=== PATIENT | female | born 1995 | race Caucasian/White ===

== ENCOUNTER 2024-12-31 10:30 | Outpatient (AMB) | payer MEDICAID, SELFPAY ==
--- NOTE | 2024-12-31 10:31 | OBCLNT_ITS ---
Vital Signs 12/31/24 10:46 Height 1.65 m Height Method Stated Weight 46.04 kg Weight Measurement Method Standing Scale BMI 16.9 BP 111/69 Blood Pressure Source Automatic Cuff Blood Pressure Location Left Upper Arm Position Sitting Respiration 16 Pulse 74 Pulse Source Monitor Temp 97.8 F Temp Source Oral Pulse Oximetry (%) 99 Oxygen Delivery Method Room Air Allergies/Home Meds Allergies & Medications Allergies NKA* Allergy (Uncoded 12/31/24 10:47) Intake Visit Data Collection New Patient or Established: New Patient (never been to [facility]) Reason for Visit:: NEW OB , INITIAL APPT Seen by Clinical Staff ONLY (RN/MA): No Retail And Restaurant Required: No Do You Feel Safe at Home: Yes Authorities Contacted: N/A PCP or OBGYN visit in last 3 months: No Hx Now: Yes Are you currently on any form of Control: No Last menstrual period: 10/21/24 Pain Present Currently: No Pain Scale Used: Choudhury-Villalpando/Numerical Pain scale:: 0 Smoking Status Smoking Status: Never smoker Questionnaires Covid-19 Vaccine Questionnaire Has patient been vacinated for Covid-19 Have you been vacinated for Covid-19: Yes PHQ-9 PHQ-2 Over the last 2 weeks, how often have you been bothered by any of the following problems? 1. Little interest or pleasure in doing things: not at all 2. Feeling down, depressed, or hopeless: not at all Total score: 0 Depression screen completed yes Social History Living Situation History Marital Status: Lives With: Family Housing: House 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 Feel Safe at Home: Yes Past Medical History Past Medical History Have you ever been diagnosed with any of the following: Neurological Problems Cerebrovascular Accident (CVA): No Transient Ischemic Attacks (TIA): No Dementia: No Alzheimer's Disease: No Parkinson's Disease: No Brain Tumor: No Meningitis: No Seizures: No Epilepsy: No Multiple Sclerosis: No Cerebral Palsy: No Amyotrophic Lateral Sclerosis (ALS/Johanna Gehrig's): No Guillain-Arcol[place] Syndrome: No Spina Bifida: No Paralysis: No Peripheral Neuropathy: No Acosta's Palsy: No Subdural Hematoma: No Migraine: No Head Trauma: No Spinal Cord Injury: No Traumatic Brain Injury: No Respiratory Problems Smoking: No Stomache/Intestinal Problems Gall Bladder Disease: No Gastroesophageal Reflux Disease: No Obesity: No Genital/Urinary Problems Renal Disease: No Reproductive Problems Breast Cancer: No Fibroids: No Genital Herpes: No Pelvic Inflammatory Disease: No Previous Pregnancies: No Endocrine Problems Diabetes Mellitus Type 1: No Diabetes Mellitus Type 2: No Hypothyroidism: No Blood Problems Anemia: No Psychologic Problems Recreational Drug Use: No Depression: No Anxiety: No Attention Deficit Hyperactivity Disorder: No Other Problems Blood Transfusions: No Surgical History Additional Surgical History: [place] teeth removal. History of Present Illness HPI Narrative The patient is a very pleasant 29-year-old G1, P0 who presents with her significant other for her initial OB visit. Patient reports fatigue and mild nausea. No significant vomiting. She has no significant past medical history and her only surgery is wisdom tooth extraction. She denies any bleeding any cramping any abnormal discharge. Patient stays at home and does not work outside the house. OB Initial Visit Menstrual History Menstrual reliability: definite Flow: normal Menstrual regularity: regular Monthly: Yes Age at menarche: 13 On control pills at conception: No Date of positive home test: 11/22/24 Associated symptoms (LMP): Reports fatigue Infection History & Risk Evaluation History of STDs: none HIV risk evaluation: low risk Hepatitis B risk evaluation: low risk Patient or partner has history of Genital Herpes: No Varicella/chicken pox status: immunized Genetic Screening & History Genetic Screening/Teratology Counseling - Includes patient, baby's father, or anyone in either family with: 1. Patient's age 35 years or older as of estimated date of delivery: No 2. Thalassemia (Amharic, Swedish, Mediterranean, or Background); MCV less than 80: No 3. Neural Tube Defect (Meningomyelocele, Spina Bifida, or Anencephaly): No 4. Congenital Heart Defect: No 5. Down Syndrome: No 6. Harrison-Sachs (Ashkenazi Shinto, Cajun, Anguillan Moroccan): No 7. Nehemias Disease (Ashkenazi Shinto): No 8. Familial Dysautonomia (Ashkenazi Shinto): No 9. Sickle Cell Disease or Trait (): No 10. Hemophilia or other blood disorders: No 11. Muscular Dystrophy: No 12. Cystic Fibrosis: No 13. Zavalla's Chorea: No 14. Mental Retardation/Autism: No 15. Other inherited genetic or chromosomal disorder: No 16. Maternal Metabolic Disorder (EG,TYPE 1 Diabetes, PKU): No 17. Patient or baby's father had a child with defects not listed above: No 18. Recurrent loss or a stillbirth: No 19. Medications (including supplements, vitamins, herbs or otc drugs)/ illicit/recreational drugs/alcohol since last menstrual period: No 20. Any other: No Comments/Counseling: Patient desires NIPT testing. Infection History 1. Live with someone with TB or exposed to TB: No 2. Rash or viral illness since last menstrual period: No 3. Hepatitis B,C: No Other (see comments) Source: [employer] OB Flowsheet OB Flowsheet Initial Weight: Not Recorded Date -?-?-?-?-?-?-?-?-?-?-?-?- EGA Weight Edema CTX Effacement BP Fundal ht Pres Dilation Effacement Station Visit Note Alb Glu FHR Mov 12/31/24 -?-?-?-?-?-?-?-?-?-?-?-?- 10w 1d 46.04 kg 111/69 130 Review of Systems Review of Systems Systems Reviewed: All systems reviewed, normal except as documented Constitutional Constitutional: Reports fatigue Endocrine Endocrine: Reports fatigue Exam General Limitations: no limitations General Appearance: alert, in no apparent distress, comfortable, cooperative, healthy appearing, well developed and well groomed Neck Neck exam: Present normal inspection, full ROM and trachea midline Chest Chest inspection: Present normal inspection and symmetric chest wall rise Resp Respiratory exam: Present normal lung sounds bilaterally Card Cardiovascular exam: Present regular rate, normal rhythm and normal heart sounds Abdominal Abdominal exam: Present soft and normal bowel sounds Rectal Rectal exam: Present deferred External exam: Present normal external exam Bimanual exam: Present normal bimanual exam Extremities Extremities exam: Present normal inspection and full ROM Assessment & Plan Diagnosis / Problem List (1) : Status: Acute Qualifiers: Weeks of gestation: 12 weeks Qualified Code(s): Z3A.12 - 12 weeks gestation of Assessment and Plan: 29-year-old G1, P0 at approximately 12 weeks with an LMP of 10/21/2024. Patient will have labs drawn. She is interested in NIPT and we will authorize for this. She will have an official first trimester ultrasound to recheck dating and follow-up in 4 weeks. Additional Plan Follow Up: 4 Weeks (call for appointmment) Office Procedures OB Clinic LOC & Office Proc's Nursing/Assessment Patient Status: Initial/New Patient OB Clinic Nursing Assessment: BP Monitoring, Medication Reconciliation, Update PMH in EMR and Vital Signs OB Clinic Coordination of Care: Consent,records obtained, informed consent, Education Simp Pt/Fam, Lab and Imaging orders and Staff clarify orders Special Needs: Heart tones New Patient Charge New Patient Point Assignment: 1119 New Patient Point Charge: TIMBER SURVEYOR Level 4 ([id number]) Established Patient Charge Established Patient Point Charge: EP Level 5 (160-above)
[2024-12-31 10:46] VITALS: BP 111/69; PULSE 74; RESP 16; TEMP 36.6; O2SAT 99; BMI 16.9
== END 2024-12-31 11:53 | disposition home or self-care (01) ==
PROVIDERS: PCP Family Medicine; Supervising Provider Obstetrics & Gynecology; Visit Provider Obstetrics & Gynecology
DX: Z34.01 Encounter for supervision of normal first pregnancy, first trimester (principal); Z3A.12 12 weeks gestation of pregnancy
CPT/HCPCS: 99204; 99215; G0463

== ENCOUNTER → 2025-01-08 | Outpatient (CLI) | payer MEDICAID, SELFPAY ==
--- NOTE | 2025-01-08 16:00 | XR_ITS ---
Examination: Complete OB ultrasound, less than 14 weeks, transabdominal Date and time of exam: January 08, 2025 1412 hours INDICATIONS: Diagnosis encounter for supervision of normal Technique: Obstetrical ultrasound images less than 14 weeks performed via transabdominal imaging Findings: A normal shaped single intrauterine gestation is present in the uterus. pole 4.8 cm corresponds to 11 weeks 4 days gestational age Cardiac motion 164 BPM Ultrasonographic survey of visible and placental structures unremarkable. Amniotic fluid volume appears appropriate for this estimated gestational age. Right ovary 2.1 cm arterial flow Left ovary obscured by bowel gas IMPRESSION: Viable intrauterine gestation 11 weeks 4 days.
== END | disposition home or self-care (01) ==
LOC: CDIM 14:41
PROVIDERS: PCP Obstetrics & Gynecology; Referring Provider Obstetrics & Gynecology; Visit Provider Obstetrics & Gynecology
DX: Z34.90 Encounter for supervision of normal pregnancy, unspecified, unspecified trimester (principal)
CPT/HCPCS: 76801

== ENCOUNTER 2025-01-23 10:42 | Outpatient (AMB) | payer MEDICAID, SELFPAY ==
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
[2025-01-23 10:49] VITALS: BP 90/63; PULSE 71; RESP 12; TEMP 36.8; O2SAT 99; BMI 16.9
== END 2025-01-23 11:21 | disposition home or self-care (01) ==
LOC: HODSOBC 10:42
PROVIDERS: Supervising Provider Obstetrics & Gynecology; Visit Provider Obstetrics & Gynecology
DX: Z34.01 Encounter for supervision of normal first pregnancy, first trimester (principal); Z3A.13 13 weeks gestation of pregnancy
CPT/HCPCS: 76801; 99214; G0463

== ENCOUNTER 2025-01-23 13:42 | Emergency (ER) | payer MEDICAID, SELFPAY ==
[2025-01-23 13:44] VITALS: BMI 16.9
[2025-01-23 14:24] VITALS: BP 99/63; PULSE 72; RESP 18; TEMP 36.3; O2SAT 99
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
[2025-01-23 14:55] LABS: Collection Type, Urine Clean Catch
[2025-01-23 15:00] LABS: Bacteria,Urine 2+; Bilirubin,Urine Negative (Negative); Blood,Urine Negative (Negative); Clarity,Urine Turbid (Clear/Hazy); Color,Urine Lt-Yellow (Lt Yel-Yel); Culture Indicated,Urine Contaminated; Glucose, Urine Negative (Negative); Ketones,Urine Negative (Negative); Leukocyte Esterase,Urine Positive (Negative); Nitrite,Urine Negative (Negative); PH,Urine 7.5 (5.0-7.0); Protein,Urine Negative (Neg - Trace); RBC,Urine 6 /hpf (0-3); Specific Gravity,Urine 1.006 (1.001-1.035); Squamous Epithelial Cell,Urine 14 /hpf (0-5); Urobilinogen,Urine Negative mg/dL (0.0-1.0); WBC,Urine 171 /hpf (0-5)
[2025-01-23 17:14] VITALS: BP 107/74; PULSE 81; RESP 18; TEMP 36.6; O2SAT 99
== END 2025-01-23 17:30 | disposition home or self-care (01) ==
PROVIDERS: Nurse Practitioner Family; Emergency Provider Emergency Medicine; PCP Obstetrics & Gynecology
DX: O9A.211 Injury, poisoning and certain other consequences of external causes complicating pregnancy, first trimester (principal); R10.2 Pelvic and perineal pain; Z3A.13 13 weeks gestation of pregnancy; O23.41 Unspecified infection of urinary tract in pregnancy, first trimester; V89.2XXA Person injured in unspecified motor-vehicle accident, traffic, initial encounter; Y92.410 Unspecified street and highway as the place of occurrence of the external cause
CPT/HCPCS: 76801; 81001; 99284

== ENCOUNTER 2025-01-27 11:31 | Outpatient (AMB) | payer MEDICAID, SELFPAY ==
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
[2025-01-27 11:38] VITALS: BP 91/62; PULSE 64; RESP 14; TEMP 36.5; O2SAT 99; BMI 17.4
== END 2025-01-27 11:52 | disposition home or self-care (01) ==
LOC: HODSOBC 11:31
PROVIDERS: PCP Obstetrics & Gynecology; Referring Provider Obstetrics & Gynecology; Supervising Provider Obstetrics & Gynecology; Visit Provider Obstetrics & Gynecology
DX: O09.92 Supervision of high risk pregnancy, unspecified, second trimester (principal); Z3A.14 14 weeks gestation of pregnancy; Z04.1 Encounter for examination and observation following transport accident; Z78.9 Other specified health status
CPT/HCPCS: 76801; 99214; G0463

== ENCOUNTER 2025-02-25 15:26 | Outpatient (AMB) | payer MEDICAID, SELFPAY ==
[2025-02-25 15:51] VITALS: BP 102/61; PULSE 65; RESP 14; TEMP 36.9; O2SAT 99; BMI 17.9
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
== END 2025-02-25 16:34 | disposition home or self-care (01) ==
LOC: HODSOBC 15:26
PROVIDERS: Supervising Provider Obstetrics & Gynecology; Visit Provider Obstetrics & Gynecology
DX: Z34.02 Encounter for supervision of normal first pregnancy, second trimester (principal); Z3A.18 18 weeks gestation of pregnancy
CPT/HCPCS: 99214; G0463

== ENCOUNTER 2025-03-27 12:59 | Outpatient (AMB) | payer MEDICAID, SELFPAY ==
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
[2025-03-27 13:18] VITALS: BP 96/57; PULSE 67; RESP 14; TEMP 36.6; O2SAT 99; BMI 18.3
[2025-03-27 16:47] LABS: Bilirubin,Urine Clinitek Negative (Negative); Blood,Urine Clinitek Negative (Negative); Glucose, Urine Clinitek Negative (Negative); Ketones,Urine Clinitek Negative (Negative); Leukocyte Esterase,Urine Clin 3+ (Negative); Nitrite,Urine Clinitek Negative (Negative); PH,Urine Clinitek 8.5 (5.0-7.0); Protein,Urine Clinitek Trace (Neg - Trace); Urobilinogen,Urine Clinitek 0.2 mg/dL (0.0-1.0)
== END 2025-03-27 13:48 | disposition home or self-care (01) ==
LOC: HODSOBC 12:59
PROVIDERS: Supervising Provider Obstetrics & Gynecology; Visit Provider Obstetrics & Gynecology
DX: Z34.92 Encounter for supervision of normal pregnancy, unspecified, second trimester (principal); Z3A.22 22 weeks gestation of pregnancy
CPT/HCPCS: 81001; 99215; G0463

== ENCOUNTER 2025-04-26 23:03 | Emergency (ER) | payer MEDICAID, SELFPAY ==
[2025-04-26 23:19] VITALS: BP 101/64; PULSE 67; RESP 18; TEMP 36.4; O2SAT 97
--- NOTE | 2025-04-26 23:56 | PD.EDADULT ---
ED General RME/HPI General Chief complaint: General Adult/Misc Complain Stated complaint: POSS BLACK BITE Time Seen by Provider: 04/26/25 23:36 Arrival date/time: 04/26/25 23:03 RME / HPI RME / HPI narrative: 26-week 29-year-old female presents to the ED with complaint of a blood clot or spider bite to her left anterior lower leg. Patient states her saw a black spider dangling from her dress when she returned home. When she took off her dress, she noticed a small omega on the lower portion of her anterior lower leg. She denies any pain, stinging, or muscle cramping to the extremity. She denies any shortness of breath or tongue swelling. Related Data Previous Rx's ?Medication ?Instructions ?Recorded cephalexin 500 mg tablet 500 mg PO BID 5 days #10 tabs 04/27/25 Allergies Allergy/AdvReac Type Severity Reaction Status Date / Time No Known Allergies Allergy Verified 04/26/25 23:13 Review of Systems Review of Systems Systems Reviewed: All systems reviewed, normal except as documented Past Medical History Past Medical History NEUROLOGIC: Negative Cerebrovascular Accident, Transient Ischemic Attacks (TIA), Dementia, Alzheimer's Disease, Parkinson's Disease, Brain Tumor, Meningitis, Seizures, Epilepsy, Multiple Sclerosis, Cerebral Palsy, Amyotrophic Lateral Sclerosis (ALS/Johanna Gehrig's), Guillain-[place] Syndrome, Spina Bifida, Paralysis, Peripheral Neuropathy, Acosta's Palsy, Subdural Hematoma, Migraine, Head Trauma, Spinal Cord Injury or Traumatic Brain Injury CARDIAC: Negative Myocardial Infarction, Cardiac Arrhythmia, Atrial Fibrillation, Angina, Heart Murmur, Hypercholesterolemia or Hypertension RESPIRATORY: Negative Chronic Obstructive Pulmonary Disease (COPD), Asthma, Bronchitis or Smoking GASTROINTESTINAL: Negative Liver Cancer, Hepatitis, Cirrhosis, Gall Bladder Disease, Gastroesophageal Reflux Disease or Obesity GENITOURINARY: Negative Renal Disease, Kidney Stones, Polycystic Kidney Disease, Neurogenic Bladder or Inguinal Hernia REPRODUCTIVE: Negative Breast Cancer, Endometriosis, Fibroids, Genital Herpes, Gonorrhea, Pelvic Inflammatory Disease, Hx Polycystic Ovarian Syndrome, Previous Pregnancies or Syphilis MUSCULOSKELETAL: Negative Muscular Dystrophy, Myasthenia Gravis, Marfan's Syndrome, Bone Cancer, Arthritis or Rheumatoid Arthritis ENT: Negative Cataracts, Glaucoma, Blind, Retinal Detachment, Macular Degeneration, Ear Infection, Deafness, Head Trauma or Eye Prosthesis ENDOCRINE: Negative Diabetes Mellitus Type 1, Diabetes Mellitus Type 2, Hypoglycemia, [place]'s Syndrome, [place]'s Disease, Hyperthyroidism, Hypothyroidism, Thyroid Cancer, Parathyroid Disease, Pituitary Disease or Systemic Lupus Erythematosus HEMATOLOGIC: Negative Anemia, Leukemia, Hemophilia, Thalassemia, Sickle Cell Disease or Clotting Problems PSYCHO/SOCIAL: Negative Schizophrenia, Recreational Drug Use, Bipolar Disorder, Depression, Anxiety, Behavior Problems, Self-Mutilation, Attention Deficit Disorder or Attention Deficit Hyperactivity Disorder OTHER HISTORY: Positive Hospitalization; Negative Autoimmune Disease, Down Syndrome, Blood Transfusions or Breast Cancer Social History SMOKING STATUS: Never smoker SECOND HAND EXPOSURE: No ED Exam Narrative Physical exam: Very pleasant 29-year-old female, no acute distress. Vital signs blood pressure 101/64, pulse 67, respirations 18 and nonlabored, temp 97.6, O2 sat 97% on room air. Lungs are clear, regular rate and rhythm without murmurs, abdomen is gravid, soft and nontender. Moves all extremities well. Left anterior lower leg with a small approximate 0.25 cm abrasion/possible puncture wound. There is no surrounding erythema, warmth, or tenderness. Course Vital Signs Vital signs: Vital Signs Temperature 97.6 F 04/26/25 23:19 Pulse Rate 67 04/26/25 23:19 Respiratory Rate 18 04/26/25 23:19 Blood Pressure 101/64 04/26/25 23:19 Pulse Oximetry (%) 97 04/26/25 23:19 Oxygen Delivery Method Room Air 04/26/25 23:19 Discharge Plan Plan Patient Disposition: HOME (Self Care) Discharge Disposition comment: Stable Prescriptions/Referrals Prescriptions/Med Rec: New cephalexin 500 mg tablet 500 mg PO BID 5 Days Qty: 10 0RF Referrals: Cliff Massey MD [Primary Care Provider] - In 1 week Problem List Clinical Impression: Black spider bite Patient/Caregiver Discharge Instructions Education Materials: ED Black Spider Bite Additional Instructions: Take the antibiotics as prescribed to prevent infection from the bite. If you develop any new or worsening symptoms, for example redness around the wound, increasing pain, cramping or spasms of the left lower extremity, difficulty breathing or difficulty swallowing, return to the emergency department as soon as possible, otherwise follow-up with your primary care physician in 24 to 48 hours. Print Language: Khmer Stand Alone Forms: Sanjuana Award Info., Patient Portal Info Letter KATHLEEN/INDUSTRIAL REFRIGERATION MECHANIC Supervising Physician PA/MICHAEL Supervising Physician: Dr. Gracia [facility] Consultations/Discussions re: Management Consult #1: Date/time: 04/27/25 12:31 am Physician, specialty, service, details: Discussed case with Dr. Gracia. As long as she is able to feel baby move, she can be discharged home with Keflex for infection prophylaxis. Diagnosis Differential diagnosis: Black or brown recluse spider bite, abscess, cellulitis, abrasion Differential dx and/or dx ruled out: Abscess, cellulitis, brown recluse spider bite Most likely dx, and/or detailed dx discussion: Possible black spider bite versus abrasion Dispositon Disposition: Discharge Home
[2025-04-27] MEDS: cephALEXin 250 MG CAPSULE 500 MG PO (00:48)
[2025-04-27 01:05] VITALS: BP 95/58; PULSE 55; RESP 18; TEMP 36.6; O2SAT 99
== END 2025-04-27 01:05 | disposition home or self-care (01) ==
PROVIDERS: Emergency Provider Emergency Medicine; PCP Family Medicine
DX: O9A.212 Injury, poisoning and certain other consequences of external causes complicating pregnancy, second trimester (principal); T63.311A Toxic effect of venom of black widow spider, accidental (unintentional), initial encounter; Z3A.26 26 weeks gestation of pregnancy
CPT/HCPCS: 99282; A9270

== ENCOUNTER 2025-05-04 14:53 | Outpatient (AMB) | payer MEDICAID, SELFPAY ==
[2025-05-04 15:29] VITALS: BP 103/59; PULSE 78; RESP 18; TEMP 36.2; O2SAT 98; BMI 19.0
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
== END 2025-05-04 15:54 | disposition home or self-care (01) ==
LOC: HODSOBC 14:53
PROVIDERS: Supervising Provider Obstetrics & Gynecology; Visit Provider Obstetrics & Gynecology
DX: Z34.92 Encounter for supervision of normal pregnancy, unspecified, second trimester (principal); Z3A.27 27 weeks gestation of pregnancy
CPT/HCPCS: 99213; G0463

== ENCOUNTER 2025-05-08 13:16 | Emergency (ER) | payer MEDICAID, SELFPAY ==
[2025-05-08 13:19] VITALS: BP 99/61; PULSE 68; RESP 18; TEMP 36.6; O2SAT 99
--- NOTE | 2025-05-08 13:20 | EKG_ITS ---
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
--- NOTE | 2025-05-08 13:20 | XR_ITS ---
Examination: Complete OB ultrasound greater than 14 weeks Date and time of exam: May 08, 2025 1335 hours INDICATIONS: Leaking vaginal fluid today with syncope Findings: Viable intrauterine single fetus with single amniotic sac presentation cephalic spine maternal left Cardiac motion 1:30 BPM Placenta anterior grade 1, venous [place] Umbilical cord insertion seen Amniotic fluid index 15.9 cm Cervix 3.4 cm closed Right ovary 2.8 cm arterial flow Left ovary 2.3 cm arterial flow Composite estimated gestational age based on BPD, head circumference, abdominal circumference, femur length is 20 weeks 6 days Estimated weight 1016 g. Survey of intracranial anatomy, spinal anatomy, abdominal anatomy, four-chamber heart performed with no abnormalities identified. Impression: Viable intrauterine gestation cephalic presentation.
--- NOTE | 2025-05-08 13:22 | EDNOTE_ITS ---
ED Syncope RME/HPI General Chief Complaint: Syncope / Near Syncope Stated Complaint: SYNCOPAL EPISODE Time Seen by Provider: 05/08/25 13:20 Arrival date/time: 05/08/25 13:16 RME / HPI RME / HPI narrative: 29-year-old female patient 1 para 0, came in for evaluation regarding syncope. Apparently patient was standing, suddenly felt dizzy and not feeling well and does not remember what happened after that, according to the the patient was helped to the chair and was noted to be shaking for few minutes. When the patient woke up patient was not noted to be confused. Patient did not bite her tongue. Patient denies any incontinence. On my initial evaluation is denying any complaints no headache no abdominal pain no vaginal bleeding. Patient's DATA ENTRY PROCESSOR is Dr. Wing. Related Data Previous Rx's ?Medication ?Instructions ?Recorded cephalexin 500 mg capsule 500 mg PO Q8H 7 days #21 cap s 05/08/25 Allergies Allergy/AdvReac Type Severity Reaction Status Date / Time No Known Allergies Allergy Verified 05/08/25 13:35 Review of Systems Review of Systems Narrative Review of Systems: Review of system reviewed and within normal limits except mentioned in HPI ED Exam Narrative Physical exam: VITAL SIGNS: Reviewed. GENERAL APPEARANCE: Alert and interactive, follows commands, no acute distress, HEAD AND FACE: Non-traumatic. ENT: PERRL, pink conjunctivitis, eyelid no trauma, Mucous membrane moist. NECK: Supple, nontender, no nuchal rigidity. CHEST: No tenderness, no crepitus, no paradoxical movement, no retractions. LUNGS: Clear, well ventilated, symmetric, no rales, no wheezing, no ronchi, no stridor, good breath sounds bilaterally. HEART: Regular rate, regular rhythm, no murmur, no gallops. ABDOMEN: Soft, positive bowel sounds, gravid abdomen, no guarding, nontender, no rebound, no masses, RECTAL: Deferred. GENITAL: Deferred. NEUROLOGICAL: Gross motor function intact sensory function intact, Appropriate for age. MUSCULOSKELETAL: low back nontender, full range of motion. EXTREMITIES: Nontender, full range of motion. SKIN: Color pink, dry, no rash, no lacerations, no abrasions, no contusions. LYMPHATICS: Deferred. Course Quality Measures none Orders Category Date Time Status EKG (ED ONLY) *Do not use* NOW Care 05/08/25 13:21 Completed EKG (ED Only) Stat Exams 05/08/25 13:20 Draft US OB >= 14 weeks Fetus Stat Exams 05/08/25 13:20 Completed Beta HCG,Quantitative Stat Lab 05/08/25 14:07 Completed CBC Stat Lab 05/08/25 14:07 Completed Comprehensive Metabolic Panel Stat Lab 05/08/25 14:07 Completed Partial Thromboplastin Time Stat Lab 05/08/25 14:07 Completed Urinalysis, C/S if Indicated Stat Lab 05/08/25 16:19 Completed Urine Culture Stat Lab 05/08/25 16:19 Received Sodium Chloride 0.9% 1000 ml [Ns] 1,000 ml Med 05/08/25 13:21 Discontinued IV 999 mls/hr cephALEXin [Keflex] Med 05/08/25 17:52 Discontinued 500 mg PO X1 ONE Vital Signs Vital signs: Vital Signs Temperature 97.9 F 05/08/25 13:19 Pulse Rate 68 05/08/25 13:19 Respiratory Rate 18 05/08/25 13:19 Blood Pressure 99/61 05/08/25 13:19 Pulse Oximetry (%) 99 05/08/25 13:19 Oxygen Delivery Method Room Air 05/08/25 13:19 Syncope MDM Narrative MDM Narrative:: 29-year-old female patient 1 para 0, came in for evaluation regarding syncope. Apparently patient was standing, suddenly felt dizzy and not feeling well and does not remember what happened after that, according to the the patient was helped to the chair and was noted to be shaking for few minutes. When the patient woke up patient was not noted to be confused. Patient did not bite her tongue. Patient denies any incontinence. On my initial evaluation is denying any complaints no headache no abdominal pain no vaginal bleeding. Patient's DATA ENTRY PROCESSOR is Dr. Wing. Laboratory workup is significant for UTI otherwise unremarkable. Except for slight leukocytosis. Ultrasound of the showed single live intrauterine gestation , about 20 weeks gestation, heart rate was noted to be 130. No abnormality noted. Patient is denying any abdominal pain no vaginal bleeding no abnormal vaginal discharge noted Patient was noted to be ambulatory with no recurrence of syncope. No vomiting noted Patient data External records reviewed:: None Clinical information provided by:: patient and family Social determinants that could affect healthcare access:: none Patient has the following chronic illnesses:: None How is presenting disease/condition affected by chronic disease/condition?: no chronic disease Evaluation data The following diagnostics were reviewed and interpreted by me:: lab results, radiology exam(s) and EKG tracing(s) Lab and/or radiology exams considered but not ordered:: None Interpretation Summary: EKG showed normal sinus rhythm, ventricular rate of 71 bpm, no ST segment elevation depression noted. Medications / Prescriptions Medications or Prescriptions considered but not ordered:: None Medication administrations:: Medication Administration History Discontinued Medications Cephalexin HCl (Cephalexin 250 Mg Capsule) 500 mg PO X1 ONE Stop: 05/08/25 17:53 Last Admin: 05/08/25 18:07 Dose: 500 mg Documented By: ER Sodium Chloride (Ns) 1,000 mls @ 999 mls/hr IV .Q1H1M ONE Stop: 05/08/25 14:21 Last Admin: 05/08/25 17:17 Dose: Not Given Documented By: DO Non-Admin Reason: Cancelled by Provider Patricia Consultations Consultation(s) initiated? (list below): No Diagnosis Syncope Differential Diagnosis: dehydration and other (Near-syncope, UTI) Most likely diagnosis given after review of the tests above:: Vasovagal syncope, ,, UTI Admission Indicated Admission indicated?: not indicated Admission Request Was there a request for admission?: No Disposition Plan Disposition Plan: Discharge Discharge Attestation Discharge Attestation: The patient and all family members were given an opportunity to ask questions and understood the discharge instructions. Discharge instructions specifically effects, indications for sooner follow up or return to the emergency department, and the expected course of current diagnosis. Patient condition: Stable Discharge Plan Plan Patient Disposition: HOME (Self Care) Discharge Disposition comment: Stable Prescriptions/Referrals Prescriptions/Med Rec: New cephalexin 500 mg capsule 500 mg PO Q8H 7 Days Qty: 21 0RF Referrals: Cliff Massey MD [Primary Care Provider] - In 1 week Problem List Clinical Impression: Vasovagal syncope, , UTI (urinary tract infection) Patient/Caregiver Discharge Instructions Discharge Activity: activity as tolerated Education Materials: Understanding Urinary Tract ... Additional Instructions: Thank you for the opportunity for serving you today. You are stable for discharged . You are advised to: Follow-up with your PCP in 1 to 2 days Return to ED for worsening of symptoms Increase oral fluids Take medication as prescribed Print Language: Upper Sorbian Stand Alone Forms: Sanjuana Award Info., Patient Portal Info Letter
[2025-05-08 13:30] VITALS: BMI 18.9
[2025-05-08 13:31] VITALS: PULSE 64; RESP 16; O2SAT 98
[2025-05-08 14:24] LABS: Basophils # (Auto) 0.1 Thou/mm3 (0.0-0.2); Basophils % (Auto) 1 % (0-2.5); Eosinophils # (Auto) 0.1 Thou/mm3 (0.0-0.5); Eosinophils % (Auto) 1 % (0-10); Hematocrit 33.4 % (36.0-46.0); Hemoglobin 11.8 g/dL (12.0-16.0); Immature Granulocytes % (Auto) 4 % (0-0); Immature Granulocytes Auto 0.54 Thou/mm3 (0.00-0.00); Lymphocytes % (Auto) 14 % (10-50); Mean Corpuscular HGB Conc 35.3 g/dl (31.0-37.0); Mean Corpuscular Hemoglobin 33.3 pg (25.0-35.0); Mean Corpuscular Volume 94 fL (80-100); Monocytes # (Auto) 0.7 Thou/mm3 (0.0-0.8); Monocytes % (Auto) 5 % (0-12); Neutrophils # (Auto) 10.7 Thou/mm3 (1.8-7.7); Neutrophils % (Auto) 76 % (37-80); Nucleated Red Blood Cell % 0 /100 WBC (0); Platelet Count 184 Thou/mm3 (140-440); RDW Standard Deviation 45.8 fL (36.4-46.3); Red Blood Count 3.54 Miln/mm3 (4.00-5.20); White Blood Count 14.1 Thou/mm3 (3.6-11.0)
[2025-05-08 14:31] LABS: Partial Thromboplastin Time 24.1 Seconds (22.0-36.0)
[2025-05-08 14:39] LABS: Alanine Aminotransferase 17 U/L (10-49); Albumin, Serum 4.1 gm/dL (3.5-5.0); Albumin/Globulin Ratio 1.7 (1.2-2.2); Alkaline Phosphatase 82 U/L (46-116); Anion Gap 8 (7-16); Aspartate Amino Transferase 29 U/L (0-34); BUN/Creatinine Ratio 13 Ratio (12-20); Bilirubin,Total 0.5 mg/dL (0.3-1.2); Blood Urea Nitrogen 8 mg/dL (9-23); Calcium 9.5 mg/dL (8.3-10.6); Calcium (Corrected) 9.5 mg/dL (8.5-10.1); Carbon Dioxide 25.3 mMol/L (20.0-31.0); Chloride 104 mMol/L (98-107); Creatinine (Component) 0.6 mg/dL (0.6-1.3); Estimated Creatinine Clearance 112.9 mL/min (>60); Globulin 2.4 gm/dL (2.3-3.5); Glucose 87 mg/dL (74-106); Osmolality,Calculated 271 (275-295); Sodium 137 mMol/L (136-145); Total Protein 6.5 gm/dL (5.7-8.2); eGFR > 60 See Note
[2025-05-08 15:13] LABS: Beta HCG,Quantitative 25750 mIU/mL (<5.0)
[2025-05-08 16:41] LABS: Collection Type, Urine Clean Catch
[2025-05-08 17:19] LABS: Bacteria,Urine 1+; Bilirubin,Urine Negative (Negative); Blood,Urine Negative (Negative); Color,Urine Lt-Yellow (Lt Yel-Yel); Glucose, Urine Negative (Negative); Ketones,Urine Negative (Negative); Leukocyte Esterase,Urine Positive (Negative); Nitrite,Urine Negative (Negative); Protein,Urine Trace (Neg - Trace); RBC,Urine 4 /hpf (0-3); Specific Gravity,Urine 1.007 (1.001-1.035); Squamous Epithelial Cell,Urine 9 /hpf (0-5); Urobilinogen,Urine Negative mg/dL (0.0-1.0); WBC,Urine 75 /hpf (0-5)
[2025-05-08 17:23] LABS: Clarity,Urine Hazy (Clear/Hazy); Culture Indicated,Urine Yes
[2025-05-08] MEDS: cephALEXin 250 MG CAPSULE 500 MG PO (18:07)
[2025-05-08 18:20] VITALS: BP 92/54; PULSE 58; RESP 16; TEMP 36.6; O2SAT 99
== END 2025-05-08 18:22 | disposition home or self-care (01) ==
PROVIDERS: Nurse Practitioner Family; Emergency Provider Emergency Medicine; PCP Family Medicine
DX: O23.42 Unspecified infection of urinary tract in pregnancy, second trimester (principal); N39.0 Urinary tract infection, site not specified; O99.412 Diseases of the circulatory system complicating pregnancy, second trimester; I49.8 Other specified cardiac arrhythmias; Z3A.20 20 weeks gestation of pregnancy
CPT/HCPCS: 36415; 76805; 80053; 81001; 84702; 85025; 85730; 87086; 93005; 99284; A9270

== ENCOUNTER 2025-05-17 14:18 | Observation (INO) | payer MEDICAID, SELFPAY ==
[2025-05-17] VITALS (9 sets, daily range): BP systolic 100; BP diastolic 55; PULSE 61–66; RESP 16–99; TEMP 36.3; O2SAT 99–100; BMI 19.3
== END 2025-05-17 15:00 | disposition home or self-care (01) ==
PROVIDERS: Admitting Provider Obstetrics & Gynecology; Visit Provider Obstetrics & Gynecology
DX: O26.893 Other specified pregnancy related conditions, third trimester (principal); R10.30 Lower abdominal pain, unspecified; Z3A.29 29 weeks gestation of pregnancy
CPT/HCPCS: 59025; 59899

== ENCOUNTER 2025-05-21 13:30 | Outpatient (AMB) | payer MEDICAID, SELFPAY ==
[2025-05-21 13:40] VITALS: BP 94/55; PULSE 65; RESP 17; TEMP 36.5; O2SAT 98
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
== END 2025-05-21 14:42 | disposition home or self-care (01) ==
LOC: HODSOBC 13:30
PROVIDERS: PCP Family Medicine; Referring Provider Family Medicine; Supervising Provider Obstetrics & Gynecology; Visit Provider Obstetrics & Gynecology
DX: Z34.03 Encounter for supervision of normal first pregnancy, third trimester (principal); Z3A.30 30 weeks gestation of pregnancy
CPT/HCPCS: 99214; G0463

== ENCOUNTER 2025-06-05 14:54 | Outpatient (AMB) | payer MEDICAID, SELFPAY ==
[2025-06-05 15:20] VITALS: BP 95/56; PULSE 58; RESP 17; TEMP 36.6; O2SAT 99; BMI 19.5
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
== END 2025-06-05 16:13 | disposition home or self-care (01) ==
LOC: HODSOBC 14:54
PROVIDERS: Supervising Provider Obstetrics & Gynecology; Visit Provider Obstetrics & Gynecology
DX: O09.893 Supervision of other high risk pregnancies, third trimester (principal); O36.5930 Maternal care for other known or suspected poor fetal growth, third trimester, not applicable or unspecified; Z3A.32 32 weeks gestation of pregnancy
CPT/HCPCS: 99213; G0463

== ENCOUNTER 2025-06-17 08:56 | Outpatient (AMB) | payer MEDICAID, SELFPAY ==
[2025-06-17 09:13] VITALS: BP 101/62; PULSE 68; RESP 14; TEMP 37.2; O2SAT 99; BMI 19.5
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
== END 2025-06-17 09:42 | disposition home or self-care (01) ==
LOC: HODSOBC 08:56
PROVIDERS: Supervising Provider Advanced Practice Midwife; Visit Provider Advanced Practice Midwife
DX: O09.893 Supervision of other high risk pregnancies, third trimester (principal); O36.5930 Maternal care for other known or suspected poor fetal growth, third trimester, not applicable or unspecified; Z3A.34 34 weeks gestation of pregnancy
CPT/HCPCS: 99214; G0463

== ENCOUNTER 2025-07-01 15:33 | Outpatient (AMB) | payer MEDICAID, SELFPAY ==
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
[2025-07-01 16:12] VITALS: BP 103/68; PULSE 68; RESP 18; TEMP 36.2; O2SAT 98; BMI 19.7
== END 2025-07-01 16:21 | disposition home or self-care (01) ==
LOC: HODSOBC 15:33
PROVIDERS: Supervising Provider Obstetrics & Gynecology; Visit Provider Obstetrics & Gynecology
DX: Z34.03 Encounter for supervision of normal first pregnancy, third trimester (principal); Z3A.36 36 weeks gestation of pregnancy
CPT/HCPCS: 99213; G0463

== ENCOUNTER → 2025-07-02 | Outpatient (CLI) | payer MEDICAID, SELFPAY ==
--- NOTE | 2025-07-02 16:15 | XR_ITS ---
Examination: Complete OB ultrasound greater than 14 weeks Date and time of exam: July 02, 2025, 1639 hours INDICATIONS: Diagnosis poor growth Findings: Viable intrauterine single fetus with single amniotic sac presentation cephalic Cardiac motion 124 bpm Placenta anterior grade 2 Cervical CORD insertion 3 vessel seen. Amniotic fluid index 15.5 cm Cervix 3.1 exam Ovaries obscured by bowel gas. Composite estimated gestational age based on BPD, head circumference, abdominal circumference, femur length is 36 weeks 2 days. Estimated weight 2537 g.. Survey of intracranial anatomy, spinal anatomy, abdominal anatomy, four-chamber heart performed with no abnormalities identified. Impression: Viable intrauterine gestation cephalic presentation.
== END | disposition home or self-care (01) ==
LOC: CDIM 16:20
PROVIDERS: Referring Provider Obstetrics & Gynecology; Visit Provider Obstetrics & Gynecology
DX: O36.5990 Maternal care for other known or suspected poor fetal growth, unspecified trimester, not applicable or unspecified (principal); Z3A.36 36 weeks gestation of pregnancy
CPT/HCPCS: 76805

== ENCOUNTER 2025-07-03 17:54 | Observation (INO) | payer MEDICAID, SELFPAY ==
[2025-07-03] VITALS (29 sets, daily range): BP systolic 86–99; BP diastolic 50–55; PULSE 52–68; RESP 17–18; TEMP 36.7; O2SAT 98–100; BMI 42.9
[2025-07-03] MEDS: ACETAMINOPHEN 500 MG TABLET 1000 MG PO (18:57)
== END 2025-07-03 20:11 | disposition home or self-care (01) ==
PROVIDERS: Admitting Provider Obstetrics & Gynecology; Visit Provider Obstetrics & Gynecology
DX: O26.893 Other specified pregnancy related conditions, third trimester (principal); Z3A.36 36 weeks gestation of pregnancy; R51.9 Headache, unspecified
CPT/HCPCS: 59025; 59899; A9270

== ENCOUNTER 2025-07-08 13:06 | Outpatient (AMB) | payer MEDICAID, SELFPAY ==
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
[2025-07-08 13:13] VITALS: BP 100/60; PULSE 65; RESP 14; TEMP 36.7; O2SAT 98; BMI 19.8
== END 2025-07-08 13:28 | disposition home or self-care (01) ==
LOC: HODSOBC 13:06
PROVIDERS: Supervising Provider Obstetrics & Gynecology; Visit Provider Obstetrics & Gynecology
DX: Z34.03 Encounter for supervision of normal first pregnancy, third trimester (principal); Z36.85 Encounter for antenatal screening for Streptococcus B; Z3A.37 37 weeks gestation of pregnancy
CPT/HCPCS: 99214; G0463

== ENCOUNTER 2025-07-15 11:01 | Inpatient (IN) | payer MEDICAID, SELFPAY ==
[2025-07-15] VITALS (130 sets, daily range): BP systolic 83–109; BP diastolic 47–63; PULSE 51–102; RESP 16–98; TEMP 36.3–36.8; O2SAT 73–100; BMI 19.6
--- NOTE | 2025-07-15 12:27 | XR_ITS ---
Examination: age Limited Technique: Limited transabdominal sonographic images pelvis Date and time: July 15, 2025 1241 hrs. Indications: Labor evaluation, unknown weight. Findings: Viable intrauterine gestation cephalic presentation Spine maternal right. Estimated weight 3010 g Cardiac motion 120 BPM Impression: Viable intrauterine gestation cephalic presentation.
[2025-07-15 13:52] LABS: Basophils # (Auto) 0.1 Thou/mm3 (0.0-0.2); Basophils % (Auto) 0 % (0-2.5); Eosinophils # (Auto) 0.1 Thou/mm3 (0.0-0.5); Eosinophils % (Auto) 1 % (0-10); Hematocrit 37.1 % (36.0-46.0); Hemoglobin 12.9 g/dL (12.0-16.0); Immature Granulocytes Auto 0.34 Thou/mm3 (0.00-0.00); Lymphocytes # (Auto) 2.8 Thou/mm3 (1.0-4.8); Lymphocytes % (Auto) 17 % (10-50); Mean Corpuscular HGB Conc 34.8 g/dl (31.0-37.0); Mean Corpuscular Hemoglobin 33.9 pg (25.0-35.0); Mean Corpuscular Volume 97 fL (80-100); Monocytes # (Auto) 0.9 Thou/mm3 (0.0-0.8); Monocytes % (Auto) 5 % (0-12); Neutrophils # (Auto) 12.3 Thou/mm3 (1.8-7.7); Neutrophils % (Auto) 75 % (37-80); Nucleated Red Blood Cell # 0.00 Thou/mm3 (0.00-0.00); Nucleated Red Blood Cell % 0 /100 WBC (0); Platelet Count 279 Thou/mm3 (140-440); RDW Standard Deviation 45.3 fL (36.4-46.3); Red Blood Count 3.81 Miln/mm3 (4.00-5.20); White Blood Count 16.5 Thou/mm3 (3.6-11.0)
[2025-07-15] MEDS: RINGERS LACTATED 1000 ML 1,000 ML 100 ML IV ×2 (14:00→16:36)
[2025-07-15 14:24] LABS: Syphilis Nonreactive (Nonreactive)
[2025-07-15] MEDS: fentaNYL CIT INJ 50 mCg/ML AMP 2ML 100 MCG IM ×2 (20:00→21:42)
[2025-07-15] MEDS: MINERAL OIL 30 ML UDC TOP (21:25)
[2025-07-15] MEDS: OXYTOCIN in NS 20 units 20 UNIT/1,000 ML BAG 125 UNIT IV (21:36)
[2025-07-15] MEDS: LIDOCAINE HCL 1% 20 ML VIAL INFL (21:37)
[2025-07-15] MEDS: IBUPROFEN TAB 400 MG TABLET 800 MG PO (22:15)
[2025-07-15] MEDS: BENZO/LANO/ALOE (Dermoplast) 60 GM CAN 1 SPRAY TOP (22:16)
[2025-07-16] VITALS (7 sets, daily range): BP systolic 77–101; BP diastolic 47–68; PULSE 60–75; RESP 16–18; TEMP 36.7–36.9; O2SAT 98
--- NOTE | 2025-07-16 02:35 | PD.LDDELS ---
Data (Johnson) Data Hx Section: No Maternal Blood Type: A Pos Rubella Titre: Negative RPR: Non-reactive Labs: Negative: RPR, Hepatitis B, HIV, Chlamydia, Gonorrhea and Group Beta Strep : 1 Term: 0 : 0 Livin Abortions: Spontaneous & Theraputic: 0 Delivery Data (Johnson) Labor Data Initiation of labor: Augmentation Induction/Augmentation Agent: Cytotec-PO ROM date: 07/15/25 ROM time: 08:00 Amniotic membrane rupture type: Spontaneous Amniotic fluid description: Clear and Blood Tinged Delivery Data EDC: 07/28/25 EDC calculated by:: LMP/early US confirmation Date of arrival to unit: 07/15/25 Time of arrival to unit: 12:00 Onset of labor date: 07/15/25 Onset of labor time: 16:30 Complete dilation date: 07/15/25 Complete dilation time: 20:30 delivery date: 07/15/25 delivery time: 21:30 Gestational age (weeks): 38 Gestational age (days): 3 Placenta delivery date: 07/15/25 Placenta delivery time: 21:36 Stage 1 total time: Labor - Stage 1 Duration 4 hours and 0 minutes Delivered by: Anu Wing (OB Clinic) Delivery nurse: SHANTELL Graham Neworn nurse: SHANTELL Barrett Natural Sciences Professor at delivery: No Support person(s) at delivery: FOB Delivery Method Delivery method: Normal Vaginal Delivery Presentation: Vertex position: OA Anesthesia Type Anesthesia Type: None Delivery Room Medications Delivery room medications: Lidocaine (local), Pitocin 20 u IV and other (Patient was given 100 mcg of fentanyl during repair) Placenta Placenta delivery description: Spontaneous Cord blood sent to lab: Yes cord blood collection: Cord Blood Type Episiotomy Episiotomy description: None Lacerations #1: Perineal: 1st degree Perineal repair Sutures used for repair: 4.0 Chromic and other (2-0 chromic) EBL Estimated blood loss (ml): 150 Umbilical Cord cord description: 3 Vessels Additional Procedures The patient is a 29-year-old with all care uncomplicated at the [facility] OB clinic with Dr. Monique Wing who presented to labor and delivery with ruptured membranes. She was given 1 dose of oral Cytotec 50 mcg and kicked into labor. She did not desire epidural. She progressed to complete by 2029 and began pushing. She pushed about an hour with me at the bedside the entire time delivering a liveborn male at 2130. Findings: liveborn male in the OVIDIO presentation with no nuchal cord or meconium. Apgars were 8 and 9. Weight was 5 pounds 13 ounces. The baby was vigorous at and placed immediately on mom's chest. Delayed cord clamping was performed for 2 minutes. The placenta was complete spontaneous grossly normal. The patient sustained a second-degree perineal laceration repaired using local anesthesia with 2-0 and 4-0 chromic sutures. Of note, the patient was given 100mcg of fentanyl for pain control during her repair. Complications were none. Condition both mom and infant were in stable condition the delivery room. Complications Complications: None [place] Data ([place]) [place] Data order: 1 [place]'s gender: Male Identification band number: [id number] weight (gms): 2630 g Weight (pounds): 5 lbs and 12.8 ozs [place] length: 48 cm 1 minute: 8 5 minutes: 9 10 minutes: 9
--- NOTE | 2025-07-16 02:36 | PD.LDHP ---
Documentation for date of: 07/16/25 OB Labor/Induct. HPI History of Present Illness Chief complaint: Ruptured membranes : 1 Para: 0 Term pregnancies: 0 pregnancies: 0 Living children: 0 History of Abortions: Spontaneous and Elective: 0 History of Vaginal deliveries: 0 History of sections: No History of : No SPARKLE: 07/28/25 Gestational Age (weeks): 38 Gestational Age (days): 1 History of present illness: The patient is a 29-year-old G1, P0 at 38 and 1 sevenths weeks who presented with ruptured membranes. She was given 1 oral dose of Cytotec and progressed to 3 cm rapidly. All care is with [facility] OB clinic and up-to-date. Group B strep negative. She desires to go natural and not get an epidural. History of Present Dating criteria: LMP confirmed by 2nd trimester US Adequate Care: Yes Ultrasounds: normal mid trimester US Obstetrical complications: none Medical complications: none Labs Maternal Blood Type: A Pos Labs: Negative: RPR, Hepatitis B, Rubella Titre (Rubella nonimmune), HIV, Chlamydia, Gonorrhea and Group Beta Strep and Unknown: Herpes Type 1, Herpes Type 2 and Covid-19 Past Medical History Surgical History SURGICAL: Negative Section Past Medical History Comments PMH COMMENT: Patient has no significant past medical history including no diabetes asthma hypertension and no significant surgical history. Meds Home Medications and Allergies Home Medications ?Medication ?Instructions ?Recorded ?Confirmed ?Type vit no.95-ferrous 1 tab PO QDAY 05/17/25 07/15/25 History fumarate 28 mg-folic acid 800 mcg tablet () Allergies Allergy/AdvReac Type Severity Reaction Status Date / Time No Known Allergies Allergy Verified 07/15/25 11:08 OB Exam Physical Exam Vital signs: Temp Pulse Resp BP Pulse Ox O2 Del Method 98.3 F 60 16 96/55 L 99 Room Air 07/15/25 22:15 07/16/25 00:07 07/15/25 21:45 07/16/25 00:07 07/15/25 21:45 07/15/25 21:45 Constitutional Constitutional: no acute distress Routine Cardiovascular Exam Cardiovascular: Present RRR Routine Abdominal Exam Abdominal: Present soft Detailed Labor and Delivery Exam Effacement (%): 50 Cervix position: mid station: -2 Consistency: medium Presentation: Vertex Membranes: ruptured Amniotic fluid: clear monitor accelerations: 15x15 monitor decelerations: None 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 variability: Moderate (11-25) Contraction frequency (min): Every 5 to 7 minutes Contraction intensity: Mild Routine Extremities Exam Extremities: Present full ROM Routine Skin Exam Skin: Present intact, dry and warm Routine Psychiatric Exam Psychiatric: Present normal affect and normal thought process OB Results Labs 07/15/25 11:35 Labs: Short CBC 07/15/25 Range/Units 11:35 WBC 16.5 H (3.6-11.0) Thou/mm3 Hgb 12.9 (12.0-16.0) g/dL Hct 37.1 (36.0-46.0) % Plt Count 279 (140-440) Thou/mm3 OB Assessment & Plan Assessment and Plan (1) Supervision of high risk in third trimester: Status: Acute Assessment and plan: Admit patient. Anticipate . Cytotec augmentation. Additional Plan Induction method: per misoprostol protocol Plan: induction
[2025-07-16 03:49] LABS: Basophils # (Auto) 0.1 Thou/mm3 (0.0-0.2); Basophils % (Auto) 0 % (0-2.5); Eosinophils # (Auto) 0.0 Thou/mm3 (0.0-0.5); Eosinophils % (Auto) 0 % (0-10); Hematocrit 34.1 % (36.0-46.0); Hemoglobin 11.6 g/dL (12.0-16.0); Immature Granulocytes Auto 0.29 Thou/mm3 (0.00-0.00); Lymphocytes # (Auto) 1.6 Thou/mm3 (1.0-4.8); Lymphocytes % (Auto) 7 % (10-50); Mean Corpuscular HGB Conc 34.0 g/dl (31.0-37.0); Mean Corpuscular Hemoglobin 33.0 pg (25.0-35.0); Mean Corpuscular Volume 97 fL (80-100); Monocytes # (Auto) 1.4 Thou/mm3 (0.0-0.8); Monocytes % (Auto) 6 % (0-12); Neutrophils # (Auto) 20.9 Thou/mm3 (1.8-7.7); Neutrophils % (Auto) 86 % (37-80); Nucleated Red Blood Cell # 0.00 Thou/mm3 (0.00-0.00); Nucleated Red Blood Cell % 0 /100 WBC (0); Platelet Count 254 Thou/mm3 (140-440); RDW Standard Deviation 45.6 fL (36.4-46.3); Red Blood Count 3.51 Miln/mm3 (4.00-5.20); White Blood Count 24.2 Thou/mm3 (3.6-11.0)
--- NOTE | 2025-07-16 07:42 | PD.LDPPPRG ---
Subjective Subjective Interval history: Delivery type: Patient doing well this morning. No acute complaints. Ambulating, tolerating p.o. and voiding without difficulty. HTN/Pre-Eclampsia screen: No chest pain, shortness of breath, headache, visual changes, epigastric or right upper quadrant pain. Breast-feeding, lochia diminishing. Bowel: Flatus+/ BM+ Exam Vital Signs Temp Pulse Resp BP Pulse Ox O2 Del Method 98.1 F 60 16 91/58 L 98 Room Air 07/16/25 04:15 07/16/25 04:15 07/16/25 04:15 07/16/25 04:15 07/16/25 04:15 07/16/25 04:15 Constitutional Constitutional: no acute distress Routine HEENT Exam Head: Present normocephalic and atraumatic Eye: Present EOMI and PERRL ENT: Present mucous membranes moist Routine Neck Exam Neck: Present supple and trachea midline Routine Respiratory Exam Respiratory: Present chest non-tender, lungs clear, normal breath sounds and no resp distress Routine Cardiovascular Exam Cardiovascular: Present RRR Routine Abdominal Exam Abdominal: Present soft and normoactive bowel sounds Routine Extremities Exam Extremities: Present full ROM Routine Skin Exam Skin: Present intact, dry and warm Routine Neurological Exam Neurological: Present alert, oriented X3 and CN II-XII intact Routine Psychiatric Exam Psychiatric: Present normal affect and normal thought process Objective Labs 07/16/25 03:30 Labs: Laboratory Results - last 24 hr 07/15/25 07/16/25 11:35 03:30 WBC 16.5 H 24.2 H D RBC 3.81 L 3.51 L Hgb 12.9 11.6 L Hct 37.1 34.1 L MCV 97 97 MCH 33.9 33.0 MCHC 34.8 34.0 RDW Std Deviation 45.3 45.6 Plt Count 279 254 Neut % (Auto) 75 86 H Lymph % (Auto) 17 7 L Charlotte % (Auto) 5 6 Eos % (Auto) 1 0 Baso % (Auto) 0 0 Neut # (Auto) 12.3 H 20.9 H Lymph # (Auto) 2.8 1.6 Charlotte # (Auto) 0.9 H 1.4 H Eos # (Auto) 0.1 0.0 Baso # (Auto) 0.1 0.1 Immature Gran # (Auto) 0.34 H 0.29 H Absolute Nucleated RBC 0.00 0.00 Immature Gran % 2 H 1 H Nucleated RBC % 0 0 Syphilis Serology Nonreactive Blood Type A Positive Antibody Screen NEGATIVE Blood Bank Wristband ID Yes Assessment & Plan Problem List (1) Supervision of high risk in third trimester: Status: Acute (2) Vaginal delivery: Status: Acute Assessment and plan: PPD/POD# 1. Continue routine care 2. Transition to PO meds. 3. Encourage to ambulate/ breast-feed 4. Anticipate discharge home today. Time Spent With Patient Time: Total time spent is greater than 50% in coordination of care (as documented) at patient's floor/unit and/or counseling patient:
[2025-07-16] MEDS: DOCUSATE SOD 100 MG CAPSULE PO ×2 (09:00→20:58)
[2025-07-16] MEDS: IBUPROFEN TAB 400 MG TABLET 800 MG PO (13:49)
[2025-07-17 03:24] VITALS: BP 124/63; PULSE 61; RESP 16; TEMP 36.7; O2SAT 98
--- NOTE | 2025-07-17 07:10 | ESPR_ITS ---
RE: JORGE CASTRO : 1995 DATE OF SERVICE: 07/17/2025 Is day number 2. The patient denies any problem or complaint. OBJECTIVE: Vital Signs: Stable. She is afebrile. Abdomen: Fundus is firm. Extremities: Nontender. Hemoglobin pre-delivery is 12.9, post-delivery is 11.6. ASSESSMENT: day number 2, status post spontaneous vaginal delivery. PLAN: Discharge home. Discharge instructions given. Follow up in the office in 6 weeks. DT: 06:57:07 TT: 07:09:00 Ref: [id number] - TID: [id number]
[2025-07-17 08:00] VITALS: BP 93/53; PULSE 69; RESP 16; TEMP 36.6; O2SAT 99
[2025-07-17] MEDS: DOCUSATE SOD 100 MG CAPSULE PO (08:33)
== END 2025-07-17 14:45 | disposition home or self-care (01) | DRG 560 ==
LOC: S4SX 15:18 → S4NX 07-16 01:18
PROVIDERS: Admitting Provider Obstetrics & Gynecology; Visit Provider Specialist
DX: O42.02 Full-term premature rupture of membranes, onset of labor within 24 hours of rupture (principal); O70.1 Second degree perineal laceration during delivery; Z37.0 Single live birth; Z3A.38 38 weeks gestation of pregnancy
CPT/HCPCS: 36415; 59025; 59409; 76815; 84112; 85025; 86780; 86850; 86900; 86901; 94762; J2590; J3010; J3490; J7120; A9270

== ENCOUNTER 2025-08-12 14:33 | Outpatient (AMB) | payer MEDICAID, SELFPAY ==
[2025-08-12 15:01] VITALS: BP 108/63; PULSE 60; RESP 15; TEMP 36.4; O2SAT 98; BMI 18.2
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
== END 2025-08-12 15:26 | disposition home or self-care (01) ==
LOC: HODSOBC 14:33
PROVIDERS: Supervising Provider Obstetrics & Gynecology; Visit Provider Obstetrics & Gynecology
DX: Z39.2 Encounter for routine postpartum follow-up (principal); Z39.1 Encounter for care and examination of lactating mother
CPT/HCPCS: 99213; G0463

== ENCOUNTER 2025-09-01 14:10 | Outpatient (AMB) | payer MEDICAID, SELFPAY ==
[2025-09-01 14:17] VITALS: BP 96/63; PULSE 67; RESP 17; TEMP 36.7; O2SAT 97; BMI 17.9
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
== END 2025-09-01 14:47 | disposition home or self-care (01) ==
LOC: HODSOBC 14:10
PROVIDERS: Supervising Provider Advanced Practice Midwife; Visit Provider Advanced Practice Midwife
DX: Z39.2 Encounter for routine postpartum follow-up (principal); Z39.1 Encounter for care and examination of lactating mother; Z12.4 Encounter for screening for malignant neoplasm of cervix
CPT/HCPCS: 99213; G0463